=== PATIENT | male | born 1950 | race Caucasian/White ===

== ENCOUNTER 2018-06-16 08:39 | Observation (INO) | payer OTHER ==
[~2018-06-16 08:39] MED LIST: TRANEXAMIC ACID 1,000 MG in NS 100 ML IV ONE
[2018-06-16] MEDS ORDERED: ACETAMINOPHEN 500 MG TAB PO ONE (09:05)
[2018-06-16] MEDS ORDERED: ceFAZolin 2 GM/DEXTROSE 100 ML IV ONE (09:05)
[2018-06-16] MEDS ORDERED: GABAPENTIN 300 MG CAP PO ONE (09:05)
[2018-06-16] MEDS ORDERED: LR 1,000 ML IV ONE (09:06)
[2018-06-16] MEDS ORDERED: LIDOCAINE 1% 2 ML INJ ID PRN (09:06)
[2018-06-16] MEDS ORDERED: CHLORHEXIDINE GLUC HIBICLENS 118 ML BTL TP ONE (09:48)
[2018-06-16] MEDS ORDERED: THROMBIN (BOVINE) 5,000 UNIT VIAL TP ONE (09:48)
[2018-06-16] MEDS ORDERED: BUPIVACAINE/EPI 0.25% 30 ML SDV ONE (09:48)
[2018-06-16] MEDS ORDERED: BACITRACIN 50,000 UNITS/10 ML SYR IRR ONE (09:48)
[2018-06-16] MEDS ORDERED: ONDANSETRON 4 MG/2 ML VIAL IVP PRN ×2 (10:35→14:14)
[2018-06-16] MEDS ORDERED: NALOXONE HCL 0.4 MG/ML INJ IVP PRN (10:35)
[2018-06-16] MEDS ORDERED: MIDAZOLAM 2 MG/2 ML VIAL IVP ONE (10:35)
[2018-06-16] MEDS ORDERED: ALBUTEROL 3 ML DEYVIAL IH PRN (10:35)
[2018-06-16] MEDS ORDERED: oxyCODONE IR 5 MG TAB PO PRN ×2 (10:35→14:14)
[2018-06-16] MEDS ORDERED: HYDROmorphONE/DILAUDID 2 MG/ML INJ IVP PRN (10:35)
[2018-06-16] MEDS ORDERED: DEXAMETHASONE 4 MG/ML VIAL IVP PRN (10:35)
[2018-06-16] MEDS ORDERED: fentaNYL 100 MCG/2 ML INJ IVP PRN (10:35)
--- NOTE | 2018-06-16 10:36 | PDANEPAE ---
ANE History of Present Illness ACDF ANE Past Medical History - Cardiovascular History Hx Hypertension: Yes Hx Arrhythmias: No Hx Chest Pain: No Hx Coronary Artery / Peripheral Vascular Disease: No Hx CHF / Valvular Disease: No Hx Palpitations: No Cardiovascular History Comment: HEART MURMUR. CARDIOMYOPATHY - Pulmonary History Hx COPD: No Hx Asthma/Reactive Airway Disease: Yes Hx Recent Upper Respiratory Infection: No Hx Oxygen in Use at Home: No Hx Sleep Apnea: No Sleep Apnea Screening Result - Last Documented: Positive Pulmonary History Comment: ALLERGIES TRIGGER ASTHMA - Neurologic History Hx Cerebrovascular Accident: No Hx Seizures: No Hx Dementia: No - Endocrine History Hx Diabetes: No - Renal History Hx Renal Disorders: No - Liver History Hx Hepatic Disorders: No - Neurological & Psychiatric Hx Hx Neurological and Psychiatric Disorders: No - Cancer History Hx Cancer: No Cancer History Comment: LESIONS ON THYROID, TO BE INVESTIGATED - Congenital Disorder History Hx Congenital Disorders: No - GI History Hx Gastrointestinal Disorders: Yes Gastrointestinal History Comment: OCCASIONAL REFLUX - Other Health History Other Health History: LEFT ARM RASH - Chronic Pain History Chronic Pain: No - Surgical History Prior Surgeries: R SHOULDER/BISCEP REPAIR ANE Review of Systems Review of Systems: - Exercise capacity METS (RN): 4 METS ANE Patient History - Allergies Allergies/Adverse Reactions: iodine Allergy (Verified 06/07/18 16:49) Hives Sulfa (Sulfonamide Antibiotics) Allergy (Verified 06/07/18 16:49) Hives - Home Medications Home Medications: Advair 100/50 (*) 06/07/18 [Last Taken 06/15/18] Aspirin 81mg (*) 06/07/18 [Last Taken 06/09/18] Benadryl 06/07/18 [Last Taken 06/14/18] Bisoprolol-Hctz 10-6.25 mg Tab 06/07/18 [Last Taken 06/15/18] Calcium 600 + Vit D 400 Softgl 06/07/18 [Last Taken 06/15/18] Cetirizine HCl 06/07/18 [Last Taken 06/15/18] Citrucel 06/07/18 [Last Taken 06/15/18] Probiotic 06/07/18 [Last Taken 06/15/18] Spironolactone 06/07/18 [Last Taken 06/16/18 06:30] Ventolin Hfa Inhaler 06/07/18 [Last Taken 06/02/18] Vitamin B Complex 06/07/18 [Last Taken 06/15/18] Vitamin C 06/07/18 [Last Taken 06/15/18] Vitamin E 06/07/18 [Last Taken 06/15/18] - NPO status NPO Since - Liquids (Date): 06/15/18 NPO Since - Liquids (Time): 21:00 NPO Since - Solids (Date): 06/15/18 NPO Since - Solids (Time): 18:30 - Smoking Hx Smoking Status: Former smoker - Family Anes Hx Family Hx Anesthesia Complications: NONE ANE Labs/Vital Signs - Vital Signs Blood Pressure: 121/75 Heart Rate: 69 Respiratory Rate: 11 O2 Sat (%): 89 Height: 179.07 cm Weight: 111.584 kg ANE Physical Exam - Airway Neck exam: FROM Mallampati Score: Class 2 Mouth exam: normal dental/mouth exam - Pulmonary Pulmonary: clear to auscultation - Cardiovascular Cardiovascular: regular rate and rhythym - ASA Status ASA Status: III ANE Anesthesia Plan Anesthesia Plan: general endotracheal anesthesia Total IV Anesthesia: Yes
[2018-06-16] MEDS ORDERED: PROPOFOL/EMULSION 500 MG/50 ML BOTTLE IV ONE ×4 (10:38→13:54)
[2018-06-16] MEDS ORDERED: REMIFENTANIL HCL 1 MG VIAL ONE ×3 (10:41)
[2018-06-16] MEDS ORDERED: MIDAZOLAM 2 MG/2 ML VIAL ONE (10:42)
[2018-06-16] MEDS ORDERED: SUCCINYLCHOLINE CHLORIDE 200 MG/10 ML SYR IVP ONE (10:45)
[2018-06-16] MEDS ORDERED: DEXAMETHASONE 4 MG/ML VIAL ONE (10:45)
[2018-06-16] MEDS ORDERED: ONDANSETRON 4 MG/2 ML VIAL ONE (10:45)
--- NOTE | 2018-06-16 11:32 | PDHPUP ---
History & Physical Update H&P update statement: This history and physical update is based on an assessment of the patient which was completed after admission or registration (within 24 hours), but prior to the surgery/procedure. H&P update: H&P reviewed & patient examined, no change in patient's condition since H&P completed
[2018-06-16] MEDS ORDERED: ePHEDrine SULFATE 25 MG/5 ML SYR ONE (12:04)
[2018-06-16] MEDS ORDERED: PHENYLEPHRINE 10 MG/ML SDV ONE (13:06)
[2018-06-16] MEDS ORDERED: BISACODYL 10 MG SUPP PR PRN (14:14)
[2018-06-16] MEDS ORDERED: LACTULOSE 20 GM/30 ML UDCUP PO PRN (14:14)
[2018-06-16] MEDS ORDERED: ONDANSETRON DISINTEGRATING 4 MG TAB PO PRN (14:14)
[2018-06-16] MEDS ORDERED: MAGNESIUM HYDROXIDE 30 ML UDCUP PO PRN (14:14)
[2018-06-16] MEDS ORDERED: diphenhydrAMINE 25 MG CAP PO PRN (14:14)
[2018-06-16] MEDS ORDERED: METHOCARBAMOL 750 MG TAB PO PRN (14:14)
[2018-06-16] MEDS ORDERED: NS 1,000 ML IV SCH (14:15)
--- NOTE | 2018-06-16 14:19 | SOAPPROG ---
SOAP Progress Note Assessment/Plan: Assessment: 68 yo M sp C6/7 ACDF Plan: stable to 3N hard collar when out of bed please call with neuro changes 06/16/18 14:18 Subjective: + neck pain, no arm pain Objective: Vital Signs Temp Pulse Resp BP Pulse Ox 36.9 C 69 11 L 121/75 H 89 L 06/16/18 09:28 06/16/18 10:36 06/16/18 10:36 06/16/18 10:36 06/16/18 10:36 somnolent PERRL, no facial droop STEPH x4 + light touch ICD10 Worksheet Patient Problems: Problems Problem Status Onset Fusion of spine of cervical region Acute - ICD10 Problem Qualifiers (1) Fusion of spine of cervical region
--- NOTE | 2018-06-16 14:40 | POSTANESTH ---
Post Anesthetic Evaluation Cardiovascular Status: Normal, Stable Respiratory Status: Normal, Stable Level of Consciousness/Mental Status: Can Participate in Eval, Moderately Sleepy Pain Control: Adequate, Prn Tx Ordered Nausea/Vomiting Control: Adequate, Prn Tx Ordered Complications Possibly Related to Anesthesia: None Noted
[2018-06-16] MEDS ORDERED: fentaNYL 100 MCG/2 ML INJ ONE (14:41)
[2018-06-16] MEDS ORDERED: POLYETHYLENE GLYCOL 3350 17 GM PKT PO SCH (16:00)
--- NOTE | 2018-06-16 16:46 | GOP ---
DATE OF OPERATION: 06/16/2018 SURGEON: Jorje Edwards MD NEUROSURGEON: Jorje Edwards MD HIM ASSISTANT: JAVI Shelley ANESTHESIA: General endotracheal. 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 Progressive cervical spondylitic myelopathy. Failed conservative care. POSTOPERATIVE DIAGNOSIS: Severe adjacent level degeneration with spinal stenosis and foraminal impin gement at C6-7, status post prior C5-6 anterior cervical diskectomy and fusion with instrumentation. Progressive cervical spondylitic myelopathy. Failed conservative care. PROCEDURE PERFORMED: Removal of C5-6 anterior cervical plate with exploration of spinal fusion at C5 -6 and new C6-7 complete anterior cervical diskectomy and arthrodesis with a 12 mm structural PEEK in terbody spacer and local autograft. Partial C6 vertebral corpectomy for decompression of the spinal canal. Placement of a C6-7 anterior cervical plate with self-drilling screws. Use of intraoperative microscopy and fluoroscopy FINDINGS: ESTIMATED BLOOD LOSS: 50 cc. INDICATIONS: The patient is a 68-year-old man with myelopathic and radicular symptoms who underwent a prior C5-6 anterior cervical diskectomy and fusion with instrumentation about 8 years ago. He has adjacent level degeneration with spinal stenosis and foraminal impingement causing myelopathic and ra dicular symptoms, and he presents now for surgical decompression, stabilization, removal of the plate , and exploration of spinal fusion. DESCRIPTION OF PROCEDURE: After informed consent was obtained, the patient was taken to the operatin g room and placed in supine position with the head in the halter retractor system. The anterior cerv ical region was prepped and draped in a sterile fashion. After fluoroscopic localization of the devin ect levels, the subcutaneous and intramuscular tissues were infiltrated with local anesthesia. A horizontal incision was then created at the level of the C6-7 interspace after determining that the old incision would not afford us the proper angle. The incision was carried through the platysmal l jessie using monopolar electrocautery and carried in the avascular plane between the sternocleidomastoi d and carotid sheath laterally, and the strap muscles, trachea, and esophagus medially down to the pr evertebral fascia, which was carefully incised with Metzenbaum scissors. The prior anterior cervical plate was very carefully identified and dissected out off the esophagus and other critical structure s. The plate was removed in standard fashion. There was some bone growth over the plate from the pr ior fusion that needed to be carefully removed. The C5-6 fusion was explored and inspected and noted to be solid. The C6-7 osteophyte was removed an d distraction pins inserted at the C6-7 level. A complete diskectomy was then performed with removal of the posterior longitudinal ligament. Bilateral foraminotomies were performed and the posteriorly situated osteophytes were carefully removed as well. Meticulous hemostasis was achieved in the woun d and disk space were copiously irrigated with antibiotic irrigation. Note that the C6 vertebral bod y was very irregular and with the prior screw holes, irregularity, and large osteophytes this require d a fairly extensive amount of drilling measuring approximately 50% of the vertebral body for C6 part ial vertebral corpectomy in order to adequately decompress the canal and achieve a good surface area for the bony union. Following this, a 12 mm structural PEEK interbody spacer packed with local autograft in the center wa s placed under fluoroscopic image guidance. The distraction was removed and an appropriately sized B iomet anterior cervical plate was placed and secured with self-drilling screws. The locking mechanis m was engaged and following verification of good position of plate and screws using biplanar fluorosc opy as best I could with the patient's body habitus, a drain was then placed. The remaining bone gra ft was gently placed anterior lateral to the graft at the C6-7 level, and the wound was closed in a l ayered fashion using interrupted Vicryl sutures, followed by Steri-Strips on the skin. COMPLICATIONS: None. DISPOSITION: The patient was extubated and transported to the recovery room in stable condition. /[id number]/MODL
[2018-06-16 17:10] VITALS: BP 118/85
[2018-06-16] MEDS ORDERED: ceFAZolin 2 GM/DEXTROSE 100 ML IV SCH (20:00)
[2018-06-16] MEDS ORDERED: SENNOSIDES/DOCUSATE SODIUM TAB PO SCH (21:00)
[2018-06-16] MEDS ORDERED: FAMOTIDINE 20 MG TAB PO SCH (21:00)
[2018-06-19] MEDS ORDERED: ENOXAPARIN 40 MG/0.4 ML SYR SC SCH (09:00)
== END 2018-06-16 19:01 | disposition home or self-care (01) ==
LOC: FSGY 08:39 → F3N 14:14
PROVIDERS: ADMIT Neurological Surgery; ATTEND Neurological Surgery
PROC: BR101ZZ Fluoroscopy of Cervical Spine using Low Osmolar Contrast (ICD-10-PCS; principal; 2018-06-16 10:45)
PROC: 4A10X4G Monitoring of Central Nervous Electrical Activity, Intraoperative, External Approach (ICD-10-PCS; principal; 2018-06-16 10:45)
PROC: 0RP104Z Removal of Internal Fixation Device from Cervical Vertebral Joint, Open Approach (ICD-10-PCS; principal; 2018-06-16 10:45)
PROC: 0RT30ZZ Resection of Cervical Vertebral Disc, Open Approach (ICD-10-PCS; principal; 2018-06-16 10:45)
PROC: 0RG10A0 Fusion of Cervical Vertebral Joint with Interbody Fusion Device, Anterior Approach, Anterior Column, Open Approach (ICD-10-PCS; principal; 2018-06-16 10:45)
PROC: 00NW0ZZ Release Cervical Spinal Cord, Open Approach (ICD-10-PCS; principal; 2018-06-16 10:45)
DX: M48.02 Spinal stenosis, cervical region (principal); M43.22 Fusion of spine, cervical region; M50.320 Other cervical disc degeneration, mid-cervical region, unspecified level; R01.1 Cardiac murmur, unspecified; I42.9 Cardiomyopathy, unspecified; J45.909 Unspecified asthma, uncomplicated
CPT/HCPCS: 20680; 22551; 63081; 76001; C1713; J0330; J0690; J1100; J2250; J2370; J2405; J2704; J3010